=== PATIENT | female | born 1975 | race Asian ===

== ENCOUNTER 2019-08-07 10:39 | Emergency (ER) | payer BC ==
[~2019-08-07] VITALS: Ht 170.2 cm; Wt 51.7 kg
[2019-08-07 10:50] VITALS: BP_SYST 127
--- NOTE | 2019-08-07 11:41 | NUR ---
Patient to ER bed 04 to gown for evaluation. Side rails up.
--- NOTE | 2019-08-07 11:45 | NUR ---
ER at bedside examining patient.
--- NOTE | 2019-08-07 12:00 | NUR ---
RN meets pt and conducts assessments. pt is now positive for influenza A but has had the flu for over a week now. has spoken with pt and will be DC home soon with prescriptions.
[2019-08-07 12:17] VITALS: BP_SYST 127
--- NOTE | 2019-08-07 12:34 | NUR ---
Patient given written and verbal discharge instructions and verbalizes understanding. ER MD discussed with patient the results and treatment provided. Patient in stable condition. ID arm band removed. Rx of naprosyn and tylenol. given. Patient educated on pain management and to follow up with PMD. Pain Scale 0/10. Opportunity for questions provided and answered. Medication side effect fact sheet provided.
== END 2019-08-07 12:34 | disposition home or self-care (01) ==
LOC: SED 10:39
DX: J11.1 Influenza due to unidentified influenza virus with other respiratory manifestations (principal); F17.210 Nicotine dependence, cigarettes, uncomplicated; I51.9 Heart disease, unspecified
CPT/HCPCS: 36415; 86710; 99283